=== PATIENT | female | born 1940 | race Caucasian/White ===

== ENCOUNTER → 2016-08-11 | Outpatient (CLI) | payer OTHER | LOC: FIMAGING 07:34 | PROVIDERS: ATTEND Internal Medicine Cardiovascular Disease | DX: R09.89 Other specified symptoms and signs involving the circulatory and respiratory systems (principal); E78.5 Hyperlipidemia, unspecified ==

== ENCOUNTER → 2016-09-07 | Outpatient (CLI) | payer OTHER | LOC: CIMAGING 07:44 | PROVIDERS: ATTEND Internal Medicine Cardiovascular Disease | DX: I77.1 Stricture of artery (principal); R09.89 Other specified symptoms and signs involving the circulatory and respiratory systems; E78.5 Hyperlipidemia, unspecified; I21.19 ST elevation (STEMI) myocardial infarction involving other coronary artery of inferior wall | CPT/HCPCS: 93880-PO ==

== ENCOUNTER 2016-09-16 07:22 | Observation (INO) | payer OTHER ==
[2016-09-16] MEDS ORDERED: MIDAZOLAM 2 MG/2 ML VIAL IVP ONE (07:24)
[2016-09-16] MEDS ORDERED: NS 1,000 ML IV ONE (07:24)
[2016-09-16] MEDS ORDERED: HEPARIN 10,000 UNIT/10 ML MDV ONE ×2 (07:29→07:46)
[2016-09-16] MEDS ORDERED: BUPIVACAINE 0.5% 30 ML SDV ONE ×2 (07:29→07:46)
[2016-09-16] MEDS ORDERED: ISOPROTERENOL HCL 0.2 MG/ML 5ML AMP ONE ×2 (07:29→07:46)
[2016-09-16] MEDS ORDERED: LIDOCAINE 1% 30 ML SDV ONE ×2 (07:29→07:46)
--- NOTE | 2016-09-16 07:55 | CPEKG ---
Heart Rate: 89 RR Interval: 674 P-R Interval: 140 QRSD Interval: 84 QT Interval: 360 QTC Interval: 439 P Spring: 60 QRS Spring: -26 T Wave Spring: -36 EKG Severity - ABNORMAL ECG - EKG Impression: SINUS RHYTHM EKG Impression: INFERIOR INFARCT, AGE INDETERMINATE EKG Impression: ABNORMAL R WAVE PROGRESSION. CONSIDER LEAD PLACEMENT VS ANTERIOR INFARCTION Electronically Signed By: Micky Aguayo 16-Sep-2016 18:28:32
[2016-09-16 08:19] LABS: % IMMATURE GRANULYOCYTES 0.3 % (0.0-1.1); ABSOLUTE IMMATURE GRANULOCYTES 0.02 10^3/uL (0.00-0.10); ADD DIFF? NO; ADD MORPH? NO; ADD SCAN? NO; ATYPICAL LYMPHOCYTE FLAG 0 (0-99); FRAGMENT RBC FLAG 0 (0-99); HEMATOCRIT 42.5 % (38.0-47.0); HEMOGLOBIN 14.4 g/dL (12.6-16.3); LEFT SHIFT FLG 0 (0-99); LIPEMIA HEMOLYSIS FLAG 90 (0-99); MEAN CELL HEMOGLOBIN 30.5 pg (27.9-34.1); MEAN CELL HEMOGLOBIN CONCENTR. 33.9 g/dL (32.4-36.7); MEAN PLATELET VOLUME 9.9 fL (8.7-11.7); PLATELET CLUMPS FLAG 0 (0-99); PLATELET COUNT 226 10^3/uL (150-400); RED BLOOD CELL COUNT 4.72 10^6/uL (4.18-5.33); RED CELL DISTRIBUTION WIDTH 12.6 % (11.5-15.2)
[2016-09-16] MEDS ORDERED: PROPOFOL/EMULSION 500 MG/50 ML BOTTLE IV ONE ×3 (08:27→09:46)
[2016-09-16 08:29] LABS: APTT 26.3 SEC (23.0-38.0)
[2016-09-16] MEDS ORDERED: BACITRACIN IRRIGATION/NS 50,000 UNITS/1,000 ML BTL IRR ONE (08:30)
[2016-09-16] MEDS ORDERED: ceFAZolin 2 GM/DEXTROSE 100 ML IV ONE (08:30)
[2016-09-16 08:34] LABS: INR 1.1 (0.83-1.16); PROTIME(PATIENT) 14.1 SEC (12.0-15.0)
[2016-09-16 08:45] LABS: ANION GAP 11 mEq/L (8-16); CALCIUM 9.6 mg/dL (8.5-10.4); CARBON DIOXIDE 26 mEq/l (22-31); CHLORIDE 98 mEq/L (97-110); CREATININE 0.8 mg/dL (0.6-1.0); GLOMERULAR FILTRATION RATE > 60; GLUCOSE 109 mg/dL (70-100); MAGNESIUM 1.8 mg/dL (1.6-2.3); SODIUM 135 mEq/L (134-144)
[2016-09-16] MEDS ORDERED: PROPOFOL 200 MG/20 ML VIAL ONE (09:22)
[2016-09-16] MEDS ORDERED: PHENYLEPHRINE HCL 100 MCG/ML SYR ONE (09:26)
[2016-09-16] MEDS ORDERED: PROCAINAMIDE HCL 1,000 MG in D5W 50 ML IV ONE (09:30)
[2016-09-16] MEDS ORDERED: CEFAZOLIN 1 GM/DEXTROSE/50 ML BAG IV ONE ×2 (09:45→09:46)
[2016-09-16] MEDS ORDERED: LIDO/EPI 1% **for epidural** 30 ML SDV ONE (09:58)
[2016-09-16] MEDS ORDERED: ACETAMINOPHEN 325 MG TAB PO PRN (11:03)
[2016-09-16] MEDS ORDERED: ONDANSETRON 4 MG/2 ML VIAL IVP PRN (11:03)
[2016-09-16] MEDS ORDERED: NITROGLYCERIN 0.4 MG BTL SL PRN (11:05)
--- NOTE | 2016-09-16 11:34 | EPPROC ---
Electrophysiology Procedure Note: DIAGNOSTIC ELECTROPHYSIOLOGIC STUDY Procedures performed: * Fluoroscopy * 10696-97 EP evaluation with RA/RV pace/record, with arrhythmia induction * 85370-11 EP evaluation with RA/RV pace record, insert/reposition catheter, with arrhythmia induction INDICATION: This is a 76 yr old with CAD s/p DC, s/p NSVT and paroxysmal AV block. The pt had episodes of syncope recently which was cardiovascular in nature as per her history. In view of this it was decided to evaluate her for inducible VT as well as conduction system disease. PROCEDURE: Catheters & Anesthesia: The patient arrived in the Electrophysiology Laboratory in the fasting state. The right clavicular region, right groin, & left groin area were prepped & draped in the usual sterile manner. Moderate sedation was administered. Appropriate non-invasive blood pressure, pulse oximetry & end-tidal CO2 monitoring was established. All catheters were placed percutaneously using the modified Seldinger technique , and advanced into position under fluoroscopic guidance. One CRD2 catheter was p[laced in the His position and then in the RA. AH 120ms HV 35ms. AVWB 300ms. This catheter was replaced with decapolar catheter which was positioned in the RV. Programmed stimulation was performed from the RV . Non sustained reentrant tachycardia was easily induced. At CL of 600ms with triple extrastimuli without the use of Isuprel, sustained rapid VT was induced. Pt was hemodynamically unstable with this VT. In view of this and its correlation with patient's symptoms of near syncope a month after her DC, it was decided to implant a dual chamber ICD. CONCLUSIONS * Normal sinus and AV node function. * No evidence of accesory AV pathway presence. * Sustained hemodynamically unstable VT induced. * No apparent complications. 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
--- NOTE | 2016-09-16 11:46 | EPPROC ---
Electrophysiology Procedure Note: PROCEDURE PERFORMED: * Implantation of an A-V Implantable Cardioverter Defibrillator * Fluoroscopy INDICATION: This is a 76 yr old female who had near syncope while traveling in a bus. EMS was called and pt was transferred to the hospital where RCA related mI was noted and PCI was performed. During hospitalisation, VT as well as paroxysmal AV block was noted. However pt recovered from that and was discharged. At home, weeks after her PA, pt had episode of near syncope which appeared to be CV in nature. In view of this, it was decided to perform EP study to eval for sustained VT. During EP study, at CL of 600ms with triple extrastimuli without the use of Isuprel, sustained rapid VT was induced. Pt was hemodynamically unstable with this VT. In view of this and its correlation with patient's symptoms of near syncope a month after her PA, it was decided to implant a dual chamber ICD. PROCEDURE NOTE: Patient presented to the cardiac catheterization laboratory in a fasting, postabsorptive state. EP study was performed as mentioned above. Once decision to implant ICD was made, the left infraclavicular area was prepped and draped in the usual sterile fashion. Moderate sedation administered. Lidocaine plus bupivacaine was used for local anesthesia. Using a combination of blunt and sharp dissection and electrocautery, the dissection was carried down to the prepectoral fascia. Left cephalic vein was identified and accessed using usual technique. All bleeding was controlled with electrocautery. Fluoroscopy was utilized during the entire procedure for venous access and placement of the leads. Placement of the guide wires into the venous system was confirmed by low pressure blood return and also by visualizing the guide wires advancing into the inferior vena cava. A purse string suture was applied around the guide wires. #10 Fr with retained wire and later a #7 Fr sheaths were advanced under fluoroscopic guidance over the guide wires. An active fixation ventricular ICD lead was advanced into the right ventricular apex and screwed in place. An active fixation atrial lead was advanced into the right atrial appendage and screwed in place. The peel away sheaths were removed. Pacing thresholds, sensing parameters and leads impedances were measured. There was no diaphragmatic stimulation at maximum output. The leads were sutured to the prepectoral fascia with 3 non-absorbable sutures. The gauze packing was removed from the ICD pocket. The pocket was again inspected for any bleeding. The leads were attached to the ICD securely. The ICD was inserted into the pocket and secured in place with a nonabsorbable suture. Fluoroscopy was performed in PADILLA and JACEY planes to verify right sided placement of the leads. Also fluoroscopy of the ICD pocket was performed. Defibrillation testing was performed. The ICD pocket was closed in 3 layers with absorbable monocryl sutures.. Appropriate dressing was applied. The patient left the cardiac catheterization laboratory in stable condition. Serial Numbers: * Device Biotronik Iperia 7 SN [id number] * Atrial Lead Biotronik SOlia S45 [id number] * Ventricular Lead Biotronik Protego S 65 SN [id number] Stimulation Thresholds & Impedance Measurements: * Atrial Lead 2.7mV, 1.1@0.4ms, 493Ohms * Ventricular Lead 15.8mV, 0.4@0.4ms, 652Ohms Pacing Parameters: * Pacing mode DDDR * Lower rate 60 * Upper tracking rate 120 * Upper sensor rate 120 Tachycardia therapy parameters: VF zone: Detection 222 bpm First therapy 40 Joule Subsequent therapies 40 Joule VT zone: Detection 182 bpm First therapy burst pacing at 84 % tachycardia CL, 8 beats, 2 sequences Second therapy 40 Joule Subsequent therapies 40 Joule Patient Problems: Problems Problem Status Onset 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
[2016-09-16 12:10] LABS: ANION GAP 6 mEq/L (8-16); CALCIUM 8.5 mg/dL (8.5-10.4); CARBON DIOXIDE 26 mEq/l (22-31); CHLORIDE 101 mEq/L (97-110); CREATININE 0.7 mg/dL (0.6-1.0); GLOMERULAR FILTRATION RATE > 60; GLUCOSE 111 mg/dL (70-100); MAGNESIUM 1.7 mg/dL (1.6-2.3); POTASSIUM 4.2 mEq/L (3.5-5.2); SODIUM 133 mEq/L (134-144)
[2016-09-16] MEDS: OXYCODONE/APAP 5/325 TAB PO PRN (19:41)
[2016-09-16] MEDS ORDERED: ATORVASTATIN CALCIUM 40 MG TAB PO SCH (21:00)
[2016-09-16] MEDS: METOPROLOL TARTRATE 25 MG TAB PO SCH (21:33)
[2016-09-17 04:38] LABS: % IMMATURE GRANULYOCYTES 0.3 % (0.0-1.1); ABSOLUTE IMMATURE GRANULOCYTES 0.02 10^3/uL (0.00-0.10); ADD DIFF? NO; ADD MORPH? NO; ADD SCAN? NO; ATYPICAL LYMPHOCYTE FLAG 20 (0-99); FRAGMENT RBC FLAG 0 (0-99); HEMATOCRIT 36.3 % (38.0-47.0); HEMOGLOBIN 11.9 g/dL (12.6-16.3); LEFT SHIFT FLG 10 (0-99); LIPEMIA HEMOLYSIS FLAG 80 (0-99); MEAN CELL HEMOGLOBIN 29.8 pg (27.9-34.1); MEAN CELL HEMOGLOBIN CONCENTR. 32.8 g/dL (32.4-36.7); MEAN CELL VOLUME 90.8 fL (81.5-99.8); MEAN PLATELET VOLUME 10.3 fL (8.7-11.7); PLATELET CLUMPS FLAG 0 (0-99); PLATELET COUNT 184 10^3/uL (150-400); RED CELL DISTRIBUTION WIDTH 12.7 % (11.5-15.2)
[2016-09-17 04:46] LABS: INR 1.12 (0.83-1.16); PROTIME(PATIENT) 14.3 SEC (12.0-15.0)
[2016-09-17 04:47] LABS: ANION GAP 6 mEq/L (8-16); CALCIUM 8.9 mg/dL (8.5-10.4); CARBON DIOXIDE 28 mEq/l (22-31); CHLORIDE 100 mEq/L (97-110); CREATININE 0.8 mg/dL (0.6-1.0); GLOMERULAR FILTRATION RATE > 60; GLUCOSE 89 mg/dL (70-100); POTASSIUM 4.3 mEq/L (3.5-5.2); SODIUM 134 mEq/L (134-144)
[2016-09-17 04:59] LABS: CREATINE KINASE-MB FRACTION 1.88 ng/mL (0-3.19); TROPONIN I 0.063 ng/mL (0-0.034)
[2016-09-17] MEDS: OXYCODONE/APAP 5/325 TAB PO PRN (05:59)
[2016-09-17] MEDS ORDERED: LEVOTHYROXINE 100 MCG TAB PO SCH (06:00)
[2016-09-17 07:23] VITALS: TEMP 98
[2016-09-17] MEDS: METOPROLOL TARTRATE 25 MG TAB PO SCH (08:20)
[2016-09-17] MEDS ORDERED: SERTRALINE HCL 50 MG TAB PO SCH (09:00)
[2016-09-17] MEDS ORDERED: ASPIRIN 81 MG CHEWABLE TAB PO SCH (09:00)
[2016-09-17] MEDS ORDERED: CHOLECALCIFEROL VIT D3 2,000 UNITS TAB/CAP PO SCH (09:00)
[2016-09-17] MEDS ORDERED: LISINOPRIL 40 MG TAB PO SCH (09:00)
[2016-09-17] MEDS ORDERED: CLOPIDOGREL BISULFATE 75 MG TAB PO SCH (09:00)
--- NOTE | 2016-09-17 09:09 | CPEKG ---
Heart Rate: 60 RR Interval: 1000 P-R Interval: 154 QRSD Interval: 82 QT Interval: 412 QTC Interval: 412 P Halliday: 69 QRS Halliday: -21 T Wave Halliday: -37 EKG Severity - ABNORMAL ECG - EKG Impression: ATRIAL-PACED COMPLEXES EKG Impression: INFERIOR INFARCT, AGE INDETERMINATE EKG Impression: CONSIDER ANTERIOR INFARCT EKG Impression: ATRIAL PACING IS NEW IN COMPARISON TO PRIOR Electronically Signed By: Micky Correa 18-Sep-2016 10:41:05
[2016-09-17 12:11] VITALS: BP 108/51; PULSE 68; RESP 19; O2SAT 97
--- NOTE | 2016-09-17 22:20 | GDS ---
[f rep st] DISCHARGE SUMMARY ADMISSION DIAGNOSES: 1. Syncopal event. 2. History of ST-elevated myocardial infarction/coronary artery disease with recent percutaneous co ronary intervention of the right coronary artery, June 27. 3. Peripheral artery disease, status post left carotid enterectomy in 2011. 4. Ongoing lightheadedness. DISCHARGE DIAGNOSES: 1. History of coronary artery disease status post ST-elevated myocardial infarction with percutaneo us coronary intervention of the right coronary artery, June 27, 2016. 2. Peripheral artery disease, status post carotid enterectomy in 2011. 3. Recent syncopal event. 4. Electrophysiology with inducible ventricular tachycardia. 5. Status post automatic implantable cardioverter defibrillator implantation. PROCEDURES DONE DURING HOSPITALIZATION: 1. Electrocardiogram. 2. Electrophysiology study. 3. Dual chamber AICD implantation with right atrium and right ventricular lead implantation, all Bi [employer]tronik. 4. Chest x-ray. BRIEF HISTORY: Please see H and P. The patient is a 76-year-old female with recent history of ST-e levated WA, inferior, with PCI of the RCA at [facility] between June 27 through , her most recent echocardiogram done on June 29 showed LVEF 70%. She reports she has b een in cardiac acute rehab, and had been doing well. She did report episodes of lightheadedness wit h a syncopal event. Due to recent WA, there was worry about arrhythmia, especially since post WA sh e was also noted to have occasional heart block. It was decided that she undergo EP study for [facility] er evaluation after meeting with Dr. Cunningham. HOSPITAL COURSE: Patient admitted to the CV, prepped for procedure, and taken to electrophysiology lab. There, Dr. Sanya Cunningham performed an electrophysiology study, which showed normal sinus and A V dalila function, no evidence of accessary AV pathway, was noted to stimulate hemodynamically unstab le VT, there were no apparent complications, at that point, procedure was changed over to AICD impla ntation in which he successfully implanted a [employer] AICD dual chamber generator with right atrial and right ventricular leads. No apparent complications. Patient was transferred back to the CVC a nd ultimately to the PCU/telemetry unit for overnight observation. Patient had been since atrially paced with intrinsic ventricular response, no malignant arrhythmias, pauses, or ectopic beats noted. Patient reports no chest pain or pressure, she has been able to walk around the unit, she did repo rt an episode of lightheadedness earlier this morning after taking Percocet, but symptoms have subsi ded. She denies any palpitations or therapeutic shocks from her defibrillator. PHYSICAL EXAMINATION: GENERAL APPEARANCE: Medium built, well-groomed female. She is coco rt and oriented to person, place, time, and situation. Appears to be in no acute distress. VITAL S IGNS: Current blood pressure is 108/51, heart rate is 68 beats per minute, respirations 19, saturat ing 97% on 2 L nasal cannula, 91% on room air, temperature of 36.7 degrees Celsius. HEENT: Head is normocephalic. Lips and tongue are pink and moist with no signs of cyanosis. Conjunctivae pink. NECK: Trachea is midline. +2 carotid pulses bilateral. No auscultated bruits, no jugular vein dis tention. RESPIRATORY: Lungs clear to auscultation, no rhonchi, rales or wheezes. No accessory mus danny use, no intercostal muscle retraction. CARDIAC: Regular rate, regular rhythm, S1, S2, a 1/6 sy stolic murmur noted along the left sternal border. ABDOMEN: Soft, nontender, bowel sounds x4 quadr ants, no organomegaly, no palpable masses. SKIN: [place], warm, dry, and no cyanosis, no clubbing, +1 peripheral edema bilateral lower extremities. VASCULAR: +2 carotids bilateral, +2 radials bilater al, +1 dorsal pedal and posterior tibial pulses bilateral. PROCEDURE SITES: Right groin catheter i nsertion site for EP procedure, with no redness, swelling, drainage, ecchymosis, or hematoma. No au scultated bruit. Surgical site for AICD implantation, left anterior chest, lateral just distal to c lavicle, incision intact with Steri-Strips, ecchymosis around the site, but no hematoma, redness, sw elling, or drainage. NEURO: Cranial nerves 2-12 grossly intact. LABORATORIES: Studies from today, WBC is 6.63, hemoglobin 11.9, hematocrit 36.3. INR 1.12. Sodium 134, potassium 4.3, chloride 100, CO2 28, BUN 15, creatinine 0.8, glucose 89, calcium 8.9. CK 69, CK-MB fraction 1.88. Troponin of 0.063, which expected to have elevated troponin level after EP pro cedure with/VT study. DISCHARGE PROCEDURES: Electrophysiology and AICD implantation as mentioned above. Biotronik defibr illator testing done today showing functioning within normal limits by [employer] rep. Electrocardio gram today shows atrial paced with intrinsic ventricular beats, noting Q-waves and inverted T-waves in inferior leads, chest x-ray done this morning showing well positioned dual lead paced AICD. No p neumothorax, no anemia, no acute cardiopulmonary process. DISCHARGE INSTRUCTIONS: Patient will be discharged home in fair condition. She is under activity r estrictions of not lifting more than 10 pounds for the next week and no strenuous activity for the n ext 2 weeks. She has been asked also not to lift left arm higher than shoulder height for the next 6 weeks. DISCHARGE MEDICATIONS: Please see discharge med rec sheet, note that patient had been on lisinopril at home at 40 mg, but has recently been started on metoprolol tartrate with the addition of the AIC D and noted history of nonsustained VT, her blood pressure is significantly lower today, we held her lisinopril dose to 40 mg this morning, and I have asked her to reduce dosage back to 10 mg q. day, I have asked that she monitor her blood pressure for the next week, keeping a log and returning it w hen she comes in for a wound and device check. DISCHARGE INSTRUCTIONS: Post electrophysiology/AICD implantation discharge instructions went over w ith the patient, including monitoring for signs of infection, activity restrictions, bathing precaut ions, and medication compliancy. The patient will continue on current dual anti-platelet therapy du e to recent myocardial infarction with stent implantation. At the time of discharge, the patient ve rbalizes understanding all discharge instructions and has no questions. She has been set up to foll ow up next week for a wound and device check in our [place] office, she will follow up with Dr. Cunningham on October 08 at 9 a.m., she will follow up with Dr. Do on October 21 at 10:30 a.m. The patient has been told that if any problems or concerns post hospital discharge she is to contact our office or seek medical attention. Total time spent on discharge greater than 30 minutes. /[id number]/MODL
== END 2016-09-17 16:18 | disposition home or self-care (01) ==
LOC: FCATH 07:22 → F2W 11:03
PROVIDERS: ADMIT Internal Medicine Cardiovascular Disease; ATTEND Internal Medicine Cardiovascular Disease
DX: I25.10 Atherosclerotic heart disease of native coronary artery without angina pectoris (principal); I21.19 ST elevation (STEMI) myocardial infarction involving other coronary artery of inferior wall; I73.9 Peripheral vascular disease, unspecified; I47.2 Ventricular tachycardia; I10 Essential (primary) hypertension; E78.5 Hyperlipidemia, unspecified; E03.9 Hypothyroidism, unspecified; E78.00 Pure hypercholesterolemia, unspecified; Z95.5 Presence of coronary angioplasty implant and graft
CPT/HCPCS: 33249; 71020; 93005; 93620; C1721; C1730; C1769; C1777; C1898; G0378; J0690; J1644; J2370; J2704; J2690

== ENCOUNTER 2016-09-18 12:03 | Emergency (ER) | payer OTHER ==
--- NOTE | 2016-09-18 13:25 | EDPHY ---
H & P Time Seen by Provider: 09/18/16 13:04 HPI/ROS: CHIEF COMPLAINT: Left chest, left arm pain HISTORY OF PRESENT ILLNESS: Patient is a 76-year-old female with a history of coronary artery disease and acute PA in May 2016. She had intermittent episodes of atrial fibrillation per report. She had an AICD placed on by Dr. Ortega. The patient reports being on Plavix and no other blood thinner. She has noticed significant bruising over her left chest at the implantation site and down her left arm. This has worsened over the past few days. She has moderate left chest and left arm pain. She states this caused her to have difficulty sleeping last evening. She denies shortness of breath. No nausea or vomiting. No fever. No numbness or tingling in tingling in her extremity. She called Dr. Sierra to obtain some pain medication he sent her to the emergency department for evaluation. REVIEW OF SYSTEMS: My complete review of systems is negative except as mentioned in the HPI. Past Medical/Surgical History: Includes coronary artery disease, acute PA, atrial fibrillation, hypothyroidism , hypertension Past surgical history: Right hip replacement, carotid surgery, appendectomy, AICD Social history: The patient is . She does not smoke use alcohol. Smoking Status: Never smoked Physical Exam: Vitals noted GENERAL: Well-appearing, in no acute distress, alert. HEENT: Eyes normal to inspection, normal pharynx, no signs of dehydration. NECK: No thyromegaly, no lymphadenopathy, supple. RESPIRATORY: Clear to auscultation bilaterally, no rales, rhonchi or wheezing. Chest: Patient has significant bruising surrounding her AICD implantation site. There is no discharge. The incision site appears clean, dry and intact. There is no palpable fluctuance or erythema. No warmth. Bruising extends down her left shoulder to her left brachium. CVS: Regular rate and rhythm, no rubs, murmurs, or gallops. ABDOMEN: Soft, nontender, nondistended, no organomegaly. BACK: Normal to inspection, no CVA tenderness. SKIN: Normal color, no rash, warm, dry. No pallor. EXTREMITIES: left brachium bruising. She has no palpable cord. She has a strong brachial, radial and ulnar pulse. Neurovascularly intact distally. No pedal edema. NEURO/PSYCH: Alert and oriented x3, normal mood and affect, normal motor sensory exam. Constitutional: Initial Vital Signs Temperature (C) 36.7 C 09/18/16 12:05 Heart Rate 67 09/18/16 12:05 Respiratory Rate 18 09/18/16 12:05 Blood Pressure 127/59 H 09/18/16 12:05 O2 Sat (%) 94 09/18/16 12:05 O2 Delivery Mode Room Air Allergies/Adverse Reactions: No Allergies [NKDA] Allergy (Verified 09/18/16 12:08) Home Medications: Medication Instructions Recorded Aspirin [Aspirin 81mg (*)] 81 mg PO DAILY 09/16/16 Acetaminophen [Tylenol 325mg (*)] 325 - 650 mg PO Q4HRS PRN #0 tab 09/17/16 Atorvastatin Calcium [Lipitor 40 80 mg PO HS #0 tab 09/17/16 mg (*)] Cholecalciferol Vit D3 [Vitamin D3 2,000 units PO DAILY #0 each 09/17/16 2000 units tab (OTC)] Clopidogrel Bisulfate [Plavix (*)] 75 mg PO DAILY #0 tab 09/17/16 Levothyroxine [Synthroid 100 mcg 100 mcg PO DAILY06 #0 tab 09/17/16 (*)] Lisinopril 10 mg PO DAILY #30 tablet 09/17/16 Metoprolol Tartrate [Lopressor 25 25 mg PO BID #0 tab 09/17/16 mg (*)] Nitroglycerin [Nitrostat 0.4 mg 0.4 mg SL Q5M PRN #0 btl 09/17/16 (*)] Sertraline HCl [Zoloft 50mg (*)] 50 mg PO DAILY #0 tab 09/17/16 oxyCODONE/APAP 5/325 [Percocet 1 - 2 tab PO Q4PRN PRN #11 tab 09/18/16 5/325 (*)] Medical Decision Making - Diagnostics EKG Interpretation: EKG shows normal sinus rhythm, normal rate, normal axis, normal intervals. Poor R-wave progression. Q-wave in 3 and AVF. Flipped T-waves in III, aVF. No ST changes. I obtained an old EKG. The Q-waves were previously present. No new changes. Imaging Results: Imaging Impressions Chest X-Ray 09/18/16 13:28 Impression: Query COPD with no superimposed acute abnormality identified. The transvenous pacer is in stable position. Extremity Venous Study 09/18/16 13:28 Impression: No evidence of vein thrombosis in the left arm. Results called and discussed with REI CHANG M.D. on 09/18/2016 at 15:42 ED Course/Re-evaluation: In the emergency department I discussed possible etiologies with the patient. Laboratory studies, EKG, chest x-ray and ultrasound left upper extremity were ordered. Patient was offered Percocet orally. Patient laboratory studies were reviewed. Her sodium slightly low 131. This is down from 134. She is mildly anemic with hematocrit of 34. This is down from 36. Her INR is 1.17. Chest x-ray: No acute disease noted. No pneumo or hemothorax. The wires appear intact. Left upper extremity ultrasound: Please refer the dictated report by Dr. Ciro Thurston. There is no DVT or abnormality noted. Discussed the results with the patient. On recheck she was doing well. She had no new complaints. She feels better after receiving the pain medication. I paged Cardiology. I discussed the case with Cardiology, Dr. Sierra. They will follow up with the patient. They are aware the patient's anemia and hyponatremia. Patient will be given a prescription for Percocet. Patient was given warnings prior to leaving. She will return with worsening symptoms. Differential Diagnosis: My differential includes but is not limited to AICD placement complication, bruising, hematoma, pneumothorax, hemothorax, DVT, arterial occlusion - Data Points Laboratory Results: Laboratory Results 09/18/16 14:10 09/18/16 14:10 09/18/16 09/18/16 09/18/16 14:10 14:10 14:10 WBC 9.10 10^3/uL 10^3/uL (3.80-9.50) RBC 3.88 10^6/uL L 10^6/uL (4.18-5.33) Hgb 11.7 g/dL L g/dL (12.6-16.3) Hct 34.3 % L % (38.0-47.0) MCV 88.4 fL fL (81.5-99.8) MCH 30.2 pg pg (27.9-34.1) MCHC 34.1 g/dL g/dL (32.4-36.7) RDW 12.7 % % (11.5-15.2) Plt Count 172 10^3/uL 10^3/uL (150-400) MPV 10.2 fL fL (8.7-11.7) Neut % (Auto) 72.2 % % (39.3-74.2) Lymph % (Auto) 15.6 % % (15.0-45.0) Rich % (Auto) 10.4 % % (4.5-13.0) Eos % (Auto) 1.3 % % (0.6-7.6) Baso % (Auto) 0.3 % % (0.3-1.7) Nucleat RBC Rel Count 0.0 % % (0.0-0.2) Absolute Neuts (auto) 6.56 10^3/uL H 10^3/uL (1.70-6.50) Absolute Lymphs (auto) 1.42 10^3/uL 10^3/uL (1.00-3.00) Absolute Monos (auto) 0.95 10^3/uL H 10^3/uL (0.30-0.80) Absolute Eos (auto) 0.12 10^3/uL 10^3/uL (0.03-0.40) Absolute Basos (auto) 0.03 10^3/uL 10^3/uL (0.02-0.10) Absolute Nucleated RBC 0.00 10^3/uL 10^3/uL (0-0.01) Immature Gran % 0.2 % % (0.0-1.1) Immature Gran # 0.02 10^3/uL 10^3/uL (0.00-0.10) PT 14.9 SEC SEC (12.0-15.0) INR 1.17 H (0.83-1.16) APTT 30.8 SEC SEC (23.0-38.0) Sodium 131 mEq/L L mEq/L (134-144) Potassium 5.3 mEq/L H mEq/L (3.5-5.2) Chloride 100 mEq/L mEq/L (97-110) Carbon Dioxide 25 mEq/l mEq/l (22-31) Anion Gap 6 mEq/L L mEq/L (8-16) BUN 14 mg/dL mg/dL (7-23) Creatinine 0.6 mg/dL mg/dL (0.6-1.0) Estimated GFR > 60 Glucose 97 mg/dL mg/dL (70-100) Calcium 8.9 mg/dL mg/dL (8.5-10.4) Specimen Hemolysis 202 Medications Given: Discontinued Medications Oxycodone/Acetaminophen (Percocet 5/325) 1 tab PO EDNOW ONE Stop: 09/18/16 15:14 Last Admin: 09/18/16 15:16 Dose: 1 tab Departure - Departure Disposition: Home, Routine, Self-Care Clinical Impression: Superficial bruising of chest wall Qualifiers: Encounter type: initial encounter Laterality: left Qualified Code(s): S20.212A - Contusion of left front wall of thorax, initial encounter Condition: Good Instructions: Hematoma (ED) Additional Instructions: Your ultrasound did not show a clot in your arm. You have mild anemia on your laboratory studies. Your sodium is also mildly low. Both of these will need to be followed and recheck. You can follow up with Dr. Katie Deluca. You need to call the motorbike courier on Tuesday morning and make an appointment to be seen. Referrals: Katie Deluca MD [Primary Care Provider] - As per Instructions Sanya Cunningham MD [Medical Doctor] - 2-3 days without fail Prescriptions: oxyCODONE/APAP 5/325 [Percocet 5/325 (*)] 1 - 2 tab PO Q4PRN PRN #11 tab PRN Reason: For Moderate To Severe Pain
--- NOTE | 2016-09-18 13:43 | CPEKG ---
Heart Rate: 70 RR Interval: 857 P-R Interval: 156 QRSD Interval: 84 QT Interval: 388 QTC Interval: 419 P Pima: 53 QRS Pima: -27 T Wave Pima: -34 EKG Severity - ABNORMAL ECG - EKG Impression: SINUS RHYTHM EKG Impression: PROBABLE INFERIOR INFARCT, AGE INDETERMINATE EKG Impression: BORDERLINE R WAVE PROGRESSION, ANTERIOR LEADS Electronically Signed By: Rebeka Dennis 18-Sep-2016 20:05:46
[2016-09-18 14:22] LABS: % IMMATURE GRANULYOCYTES 0.2 % (0.0-1.1); ABSOLUTE IMMATURE GRANULOCYTES 0.02 10^3/uL (0.00-0.10); ADD DIFF? NO; ADD MORPH? NO; ADD SCAN? NO; ATYPICAL LYMPHOCYTE FLAG 0 (0-99); FRAGMENT RBC FLAG 0 (0-99); HEMATOCRIT 34.3 % (38.0-47.0); HEMOGLOBIN 11.7 g/dL (12.6-16.3); LEFT SHIFT FLG 0 (0-99); LIPEMIA HEMOLYSIS FLAG 90 (0-99); MEAN CELL HEMOGLOBIN 30.2 pg (27.9-34.1); MEAN CELL HEMOGLOBIN CONCENTR. 34.1 g/dL (32.4-36.7); MEAN CELL VOLUME 88.4 fL (81.5-99.8); MEAN PLATELET VOLUME 10.2 fL (8.7-11.7); PLATELET CLUMPS FLAG 0 (0-99); PLATELET COUNT 172 10^3/uL (150-400); RED BLOOD CELL COUNT 3.88 10^6/uL (4.18-5.33); RED CELL DISTRIBUTION WIDTH 12.7 % (11.5-15.2)
[2016-09-18 14:28] LABS: INR 1.17 (0.83-1.16); PROTIME(PATIENT) 14.9 SEC (12.0-15.0)
[2016-09-18 14:29] LABS: APTT 30.8 SEC (23.0-38.0)
[2016-09-18 14:30] LABS: ANION GAP 6 mEq/L (8-16); CALCIUM 8.9 mg/dL (8.5-10.4); CARBON DIOXIDE 25 mEq/l (22-31); CHLORIDE 100 mEq/L (97-110); CREATININE 0.6 mg/dL (0.6-1.0); GLOMERULAR FILTRATION RATE > 60; GLUCOSE 97 mg/dL (70-100); POTASSIUM 5.3 mEq/L (3.5-5.2); SODIUM 131 mEq/L (134-144)
[2016-09-18 14:32] LABS: SPECIMEN HEMOLYSIS 202
[2016-09-18] MEDS ORDERED: OXYCODONE/APAP 5/325 TAB PO ONE (15:13)
[2016-09-18 16:44] VITALS: BP 111/50; PULSE 75; RESP 16; TEMP 97.5; O2SAT 95
== END 2016-09-18 17:01 | disposition home or self-care (01) ==
DX: I97.618 Postprocedural hemorrhage of a circulatory system organ or structure following other circulatory system procedure (principal); I25.10 Atherosclerotic heart disease of native coronary artery without angina pectoris; I25.2 Old myocardial infarction; I10 Essential (primary) hypertension; Z79.82 Long term (current) use of aspirin

== ENCOUNTER → 2016-12-07 | Outpatient (CLI) | payer OTHER ==
[~2016-12-07] MED LIST: IOPAMIDOL (ISOVUE 370) 100 ML BTL IV ONE
== END ==
LOC: FIMAGING 17:38
PROVIDERS: ATTEND Internal Medicine
DX: S22.42XA Multiple fractures of ribs, left side, initial encounter for closed fracture (principal); I25.10 Atherosclerotic heart disease of native coronary artery without angina pectoris; J98.4 Other disorders of lung; Z95.0 Presence of cardiac pacemaker
CPT/HCPCS: 71275; Q9967

== ENCOUNTER 2017-02-21 14:46 | Emergency (ER) | payer OTHER ==
--- NOTE | 2017-02-21 16:11 | EDPHY ---
H & P Time Seen by Provider: 02/21/17 15:55 HPI/ROS: CHIEF COMPLAINT: Headache, and difficulty speaking HISTORY OF PRESENT ILLNESS: Patient has had a left carotid endarterectomy and has history of hypertension. No previous history of stroke or intracranial bleed. No history of seizure. 2 weeks ago the patient was talking on the telephone to her cousin and had a headache on the top of her head and had about 15 minutes of trouble with her speech her she could not think of the right words to say. She has had intermittent headache since then for the past 2 weeks and then 4 days ago on February 17 had 15 or 16 people over for lunch, had a headache afterwards in the evening which was on top of her head with associated nausea and had 10 minutes of inability to speak properly to her . She was trying to tell him to turn the air conditioning down but could not think of the word for the thermostat. Currently the patient has a mild headache on the top of her head. Does not radiate. Not better or worse with anything. Does not radiate. REVIEW OF SYSTEMS: Eye: no change in vision or double vision ENT: no sore throat or earache or he symptoms Cardiac: no chest pain or syncope Pulmonary: no cough or SOB Abdomen: no vomiting, diarrhea, abdominal pain Musculoskeletal: no back pain Skin: no rash Neuro: HPI Constitutional: no fever : no urinary symptoms A comprehensive 10 point review of systems is otherwise negative aside from elements mentioned in the history of present illness. PAST MEDICAL HISTORY: As in HPI includes hypertension, left carotid endarterectomy, appendectomy, right hip replacement. Pacemaker and defibrillator. Thyroid disease. Social history: . Recently her daughter moved to [place] which is been a big emotional strain and she had been very involved in the lives of her 4 grandchildren prior to their departure. General Appearance: Alert and conversant, cooperative. Eyes: No scleral icterus. ENT, Mouth: Normal mucous membranes. No tongue laceration or abrasion. Respiratory: Normal respiratory effort, breath sounds equal, lungs are clear to auscultation. Cardiovascular: Regular rate and rhythm. No carotid bruit. Gastrointestinal: Abdomen is soft and non tender. Neurological: Alert and oriented x3. Normally conversant. Face symmetric, normal movement and sensation in all extremities. Extraocular motion intact, no pronator drift, normal [id number] bilaterally, fluent speech. Skin: Warm and dry, no rashes. Musculoskeletal: No peripheral edema and no joint swelling. Psychiatric: Not agitated. Emergency Department course/MDM: Plan for EKG, i-STAT and noncontrast head CT and CT angiography. Headache is mild now in the emergency department. Declined pain medication. 1755: CT and CTA per Dr. Guevara shows 1.2 cm meningioma otherwise negative. This results including presence of meningioma discussed with the patient. 1803: Discussed with [facility] neurology. He feels that as long she is taking oral aspirin she is stable to discharge even if this does represent TIA. Differential includes but not limited to partial seizure, migraine headache, TIA. Discussed in detail with the patient, stable for discharge. Smoking Status: Never smoked Constitutional: Initial Vital Signs Temperature (C) 36.7 C 02/21/17 14:50 Heart Rate 72 02/21/17 14:50 Respiratory Rate 18 02/21/17 14:50 Blood Pressure 118/52 L 02/21/17 14:50 O2 Sat (%) 92 02/21/17 14:50 O2 Delivery Mode Room Air Allergies/Adverse Reactions: No Allergies [NKDA] Allergy (Verified 09/18/16 12:08) Home Medications: Medication Instructions Recorded Aspirin [Aspirin 81mg (*)] 81 mg PO DAILY 09/16/16 Atorvastatin Calcium [Lipitor 40 80 mg PO HS #0 tab 09/17/16 mg (*)] Clopidogrel Bisulfate [Plavix (*)] 75 mg PO DAILY #0 tab 09/17/16 Levothyroxine [Synthroid 100 mcg 100 mcg PO DAILY06 #0 tab 09/17/16 (*)] Lisinopril 10 mg PO DAILY #30 tablet 09/17/16 Metoprolol Tartrate [Lopressor 25 25 mg PO BID #0 tab 09/17/16 mg (*)] Nitroglycerin [Nitrostat 0.4 mg 0.4 mg SL Q5M PRN #0 btl 09/17/16 (*)] Medical Decision Making - Diagnostics EKG Interpretation: 12-lead EKG interpreted by me; official reading is in trace master. My interpretation is sinus rhythm rate 68, inferior T-wave inversions in 3 and AVF similar to 18 September 2016 Imaging Results: Imaging Impressions Head CT 02/21/17 16:33 Impression: 1. No acute intracranial findings. 2. Diffuse cerebral atrophy with periventricular and subcortical low attenuation consistent with chronic microvascular ischemic gliosis. 3. Probable right frontal meningioma without significant mass effect. Head CTA 02/21/17 16:33 Impression: 1. No acute vascular findings. 2. Mild atherosclerosis in the proximal right internal carotid artery, without significant stenosis. 3. Small right frontal extraaxial mass suggesting meningioma. 4. Ground-glass opacities in the apices, possibly related to subsegmental atelectasis, inflammation, or pulmonary edema. 5. Additional findings, as above. Stenoses are calculated using [place] Symptomatic Carotid Endarterectomy Trial (NASCET) criteria. Findings discussed with Romeo Hicks M.D., on February 21, 2017 at 1742. Neck CTA 02/21/17 16:33 Impression: 1. No acute vascular findings. 2. Mild atherosclerosis in the proximal right internal carotid artery, without significant stenosis. 3. Small right frontal extraaxial mass suggesting meningioma. 4. Ground-glass opacities in the apices, possibly related to subsegmental atelectasis, inflammation, or pulmonary edema. 5. Additional findings, as above. Stenoses are calculated using [place] Symptomatic Carotid Endarterectomy Trial (NASCET) criteria. Findings discussed with Romeo Hicks M.D., on February 21, 2017 at 1742. Differential Diagnosis: Differential considered including but not limited to intracranial mass, subarachnoid hemorrhage, intracranial bleed, seizure, metabolic, ischemic stroke or TIA. - Data Points Laboratory Results: Laboratory Results 02/21/17 16:27 02/21/17 16:27 02/21/17 02/21/17 02/21/17 16:27 16:27 16:24 WBC 7.88 10^3/uL 10^3/uL (3.80-9.50) RBC 4.48 10^6/uL 10^6/uL (4.18-5.33) Hgb 13.4 g/dL g/dL (12.6-16.3) POC Hgb 13.9 gm/dL gm/dL (12.6-16.3) Hct 39.9 % % (38.0-47.0) POC Hct 41 % % (38-47) MCV 89.1 fL fL (81.5-99.8) MCH 29.9 pg pg (27.9-34.1) MCHC 33.6 g/dL g/dL (32.4-36.7) RDW 14.4 % % (11.5-15.2) Plt Count 211 10^3/uL 10^3/uL (150-400) MPV 9.9 fL fL (8.7-11.7) Neut % (Auto) 63.5 % % (39.3-74.2) Lymph % (Auto) 21.7 % % (15.0-45.0) [place] % (Auto) 10.3 % % (4.5-13.0) Eos % (Auto) 3.7 % % (0.6-7.6) Baso % (Auto) 0.5 % % (0.3-1.7) Nucleat RBC Rel Count 0.0 % % (0.0-0.2) Absolute Neuts (auto) 5.01 10^3/uL 10^3/uL (1.70-6.50) Absolute Lymphs (auto) 1.71 10^3/uL 10^3/uL (1.00-3.00) Absolute Monos (auto) 0.81 10^3/uL H 10^3/uL (0.30-0.80) Absolute Eos (auto) 0.29 10^3/uL 10^3/uL (0.03-0.40) Absolute Basos (auto) 0.04 10^3/uL 10^3/uL (0.02-0.10) Absolute Nucleated RBC 0.00 10^3/uL 10^3/uL (0-0.01) Immature Gran % 0.3 % % (0.0-1.1) Immature Gran # 0.02 10^3/uL 10^3/uL (0.00-0.10) POC Sodium 140 mEq/L mEq/L (134-144) Sodium 135 mEq/L mEq/L (134-144) POC Potassium 3.7 mEq/L mEq/L (3.3-5.0) Potassium 3.9 mEq/L mEq/L (3.5-5.2) POC Chloride 100 mEq/L mEq/L (97-110) Chloride 99 mEq/L mEq/L (97-110) Carbon Dioxide 27 mEq/l mEq/l (22-31) Anion Gap 9 mEq/L mEq/L (8-16) POC BUN 21 mg/dL mg/dL (7-23) BUN 21 mg/dL mg/dL (7-23) Creatinine 1.2 mg/dL H mg/dL (0.6-1.0) POC Creatinine 1.2 mg/dL H mg/dL (0.6-1.0) Estimated GFR 43 Glucose 87 mg/dL mg/dL (70-100) POC Glucose 90 mg/dL mg/dL (70-100) Calcium 9.4 mg/dL mg/dL (8.5-10.4) Medications Given: Discontinued Medications Sodium Chloride (Ns) 1,000 mls @ 0 mls/hr IV EDNOW ONE; Wide Open PRN Reason: Protocol Stop: 02/21/17 16:35 Last Admin: 02/21/17 17:23 Dose: 1,000 mls Point of Care Test Results: 02/21/17 16:24 POC Sodium 140 POC Potassium 3.7 POC Chloride 100 POC BUN 21 POC Creatinine 1.2 H POC Glucose 90 Departure - Departure Disposition: Home, Routine, Self-Care Clinical Impression: Word finding difficulty Condition: Good Instructions: Acute Headache (ED) Additional Instructions: Continue to take 1 baby aspirin per day. Referrals: Katie Deluca MD [Primary Care Provider] - As per Instructions Noel Nichole MD [Medical Doctor] - As per Instructions (Follow-up with this neurologist in the office this week. I spoke with him about your case on the phone this evening)
--- NOTE | 2017-02-21 16:20 | CPEKG ---
Heart Rate: 68 RR Interval: 882 P-R Interval: 136 QRSD Interval: 82 QT Interval: 404 QTC Interval: 430 P [place]: 62 QRS [place]: -9 T Wave [place]: -30 EKG Severity - ABNORMAL ECG - EKG Impression: SINUS RHYTHM EKG Impression: BORDERLINE INFERIOR Q WAVES EKG Impression: ABNORMAL T, CONSIDER ISCHEMIA, INFERIOR LEADS Electronically Signed By: Romeo Hicks 21-Feb-2017 16:30:43
[2017-02-21] MEDS ORDERED: NS 1,000 ML IV ONE (16:34)
[2017-02-21 16:39] LABS: % IMMATURE GRANULYOCYTES 0.3 % (0.0-1.1); ABSOLUTE IMMATURE GRANULOCYTES 0.02 10^3/uL (0.00-0.10); ADD DIFF? NO; ADD MORPH? NO; ADD SCAN? NO; ATYPICAL LYMPHOCYTE FLAG 10 (0-99); FRAGMENT RBC FLAG 0 (0-99); HEMATOCRIT 39.9 % (38.0-47.0); HEMOGLOBIN 13.4 g/dL (12.6-16.3); LEFT SHIFT FLG 0 (0-99); LIPEMIA HEMOLYSIS FLAG 80 (0-99); MEAN CELL HEMOGLOBIN 29.9 pg (27.9-34.1); MEAN CELL HEMOGLOBIN CONCENTR. 33.6 g/dL (32.4-36.7); MEAN CELL VOLUME 89.1 fL (81.5-99.8); MEAN PLATELET VOLUME 9.9 fL (8.7-11.7); PLATELET CLUMPS FLAG 0 (0-99); PLATELET COUNT 211 10^3/uL (150-400); RED BLOOD CELL COUNT 4.48 10^6/uL (4.18-5.33); RED CELL DISTRIBUTION WIDTH 14.4 % (11.5-15.2)
[2017-02-21] MEDS ORDERED: IOPAMIDOL (ISOVUE 370) 100 ML BTL IV ONE (16:43)
[2017-02-21 16:53] LABS: ANION GAP 9 mEq/L (8-16); CALCIUM 9.4 mg/dL (8.5-10.4); CARBON DIOXIDE 27 mEq/l (22-31); CHLORIDE 99 mEq/L (97-110); CREATININE 1.2 mg/dL (0.6-1.0); GLOMERULAR FILTRATION RATE 43; GLUCOSE 87 mg/dL (70-100); POTASSIUM 3.9 mEq/L (3.5-5.2); SODIUM 135 mEq/L (134-144)
[2017-02-21 17:22] VITALS: RESP 16
[2017-02-21 18:24] VITALS: BP 136/81; PULSE 69; TEMP 96.8; O2SAT 95
== END 2017-02-21 18:29 | disposition home or self-care (01) ==
DX: R47.01 Aphasia (principal); I10 Essential (primary) hypertension; E86.9 Volume depletion, unspecified; Z95.0 Presence of cardiac pacemaker; Z79.82 Long term (current) use of aspirin
CPT/HCPCS: 70450; 70496; 70498; 93005; 99285; Q9967; 82947-QW